=== PATIENT | male | born 1950 | race African-American/Black ===

== ENCOUNTER 2020-05-30 11:39 | Outpatient (CLI) | payer MEDICARE ==
--- NOTE | 2020-05-30 15:01 | XRay Report ---
LUMBAR SPINE 3 VIEWS INDICATION / CLINICAL INFORMATION: M54.5Low back pain COMPARISON: None available. FINDINGS: BONES / JOINT(S): No acute fracture or subluxation. Moderate degenerative disc disease greatest at L4 -L5. SOFT TISSUES: Moderate atherosclerotic calcification of the aorta. ADDITIONAL FINDINGS: None. Signer Name: Roe Jimenez MD Signed: 05/30/2020 2:57 PM Workstation Name: [id number]
== END 2020-05-30 11:40 | disposition home or self-care (01) ==
LOC: SPVIMAG 11:39
PROVIDERS: ATTEND Family Medicine
DX: M51.36 Other intervertebral disc degeneration, lumbar region (principal); I70.0 Atherosclerosis of aorta
CPT/HCPCS: 72100